=== PATIENT | male | born 1970 | race Caucasian/White ===

== ENCOUNTER 2024-05-07 12:37 | Outpatient (REF) | payer MEDICAID, SELFPAY ==
--- OUTSIDE RECORDS SUMMARY | 2024-05-07 13:34 | XMS_ITS | Encounter Summary ---
Author Organization [employer] Address [address] [facility] [address] [place] [address] Care Team Providers Care Registered Dietician Name Role Phone Rm Saez MD Primary Care Prov ider Encounter Details Date Type Department Care Team (Latest Contact Info) Description 04/15/2024 Travel Social History Tobacco Use Types Packs/Day Years Used Date Smoking Tobacco: Former Cigarettes 0.3 30.1 S tarted: 1994 Passive Smoke Exposure: Never Smokeless Tobacco: Never Alcohol Use Standard Drinks/Week Comments Yes 0 (1 standard drink = 0.6 oz pur e alcohol) socially beer Depression Answer Date Recorded Patient Health Questionnaire-9 Score 0 04/15/2024 Patient Health Questionnaire-9 Score 0 04/15/2024 Last PHQ-9: Questionnaire Data Not on file 0 04/15/2024 Housing Stability Answer Date Recorded What is your housing situation today? I have nanifarnaz pineda 04/15/[address] you li ve. Do you have problems with any of the following? None of the above 04/15/2024 Food Insecurity Answer Date Recorded Within the past 12 months, y ou worried that your food would run out before you got money to buy more: Never True 04/15/2024 Within the past 12 months,th e food you bought just didn't last and you didn't have enough money to get more: Never True Utilities Answer Date Recorded In the past 12 months, has t he electric, gas, oil or water company threatened to shut off services in your home? No 04/15/2024 Depression Answer Date Recorded Patient Health Questionnaire-2 Score 0 04/15/2024 Internet Access Answer Date Recorded Internet Access Q1 Yes 04/15/2024 Internet Access Q2 Not on file 04/15/2024 Sex and Gender Information Value Date Recorded Sex Assigned at Male 01/17/2022 10:29 AM EDT Legal Sex Male 10:29 AM EDT Gender Identity Male 04/11/2024 9:30 AM EST Sexual Orientation Don't know 04/11/2024 9: 30 AM EST documented as of this encounter Plan of Treatment Upcoming Encounters Date Type Department Care Team (Late st Contact Info) Description 06/03/2024 9:30 AM EDT Office Visit [facility] MED & PEDS [address] [place] [address] Rm Saez MD [address] [place] [address] documented as of this encounter Visit Diagnoses Not on filedocumented in this encounter Additional Health Concerns Assessment Noted Time PHQ-9 Depression Total Score: 0 04/15/19 25 8:34 AM EST documented as of this encounter Care Teams Registered Dietician Relationship Specialty Start Date End Date Rm Saez MD [address] [place] [address] PCP - General Internal Medicine 04/15/24 documented as of this encounter
--- OUTSIDE RECORDS SUMMARY | 2024-05-07 13:34 | XMS_ITS | Clinical Summary ---
Author Organization [employer] Address [address] [place] [address] [address] [place] [address] Care Team Providers Care Depalletizer Operator Name Role Phone Rm Saez MD Primary Care Prov ider Allergies No known active allergies Medications No known medications Active Problems Problem Noted Date Diagnosed Date Encounter to establish care 04/15/2024 Assessment & Plan (04/15/2024 9:12 AM EST): Last pcp visit >5 years Er: - Hospitalization: 2017 LBBB, syncope s/p ICD, alcohol withdrawal 2009 Pmhx: LBBB, HTN Pshx: - All: - Meds: metoprolol 50mg bid, lisinopril 20mg daily Primary hypertension 04/15/2024 Assessment & Plan (04/15/2024 9:33 AM EST): On lisinopril 20mg, keep bp log for next appointment, target <140/90 Lumbar back pain 04/15/2024 Assessment & Plan (04/15/2024 9:36 AM EST): Chronic, patient has hx of l5-s1 disc herniation, no neurologic deficit, Screening for colon cancer 04/15/2024 Assessment & Plan (04/15/2024 9:36 AM EST): Will refer for screening colon cancer Encounters Date Type Department Care Team Description 04/15/2024 9:00 AM EST Telemedicine [facility] MED & PEDS [address] [place] [address] Rm Saez MD Encounter to establish care (Primary Dx); Primary hypertension; Lumbar back pain; Screening for colon cancer 04/15/2024 Travel 03/28/[address] [facility] MEDICINE [address] [place] [address] Sadiq Craft MD New Patient appt. 02/12/[address] [facility] MEDICINE [address] [place] [address] Sadiq Craft MD Appointment Request from Last 3 Months Family History Medical History Relation Name Comments Diabetes Father Osteoarthritis Mother Cancer Neg Hx Relation Name Status Comments Father Mother Social History Tobacco Use Types Packs/Day Years [...] Don't know 04/11/2024 9: 30 AM EST Plan of Treatment Upcoming Encounters Date Type Department Care Team ([facility] st Contact Info) Description 06/03/2024 9:30 AM EDT Office Visit [facility] MED & PEDS [address] [place] [address] Rm Saez MD [address] [place] [address] Health Maintenance Due Date Last Done Comments CT Colonography 1971 Colonoscopy 1971 Colorectal Cancer Screening 1971 FIT DNA/Cologuard 1971 FIT 1971 FOBT 1971 HIV Screening 1971 Lipid Panel 1971 SDOH Screening 1971 Sigmoidoscopy 1971 Alcohol/Substance Use Screening 1983 Family Planning (PISQ) 08/29/1986 Hepatitis C Screening 08/29/1989 Pneumococcal Vaccine: 50+ Years (1 of 1 - PCV) 08/29/2021 Hepatitis B Vaccines (2 of 2 - CpG 2-dose series) 09/23/2023 08/26/2023 Depression Screening 04/15/2025 04/15/2024, 04/15/19 25 Tobacco Screening 04/15/2025 04/15/2024 DTaP/Tdap/Td Vaccines (2 - Td or Tdap) 07/21/2025 07/22/2015 RSV Patients and Patients Aged 60 years or older (1 - 1-dose 75+ series) 08/29/2046 Zoster Vaccines Completed 08/26/2023, 03/14/2023 COVID-19 Vaccine Completed 12/25/2023, , 01/31/2022, Additional history exists Influenza Vaccine Completed 12/25/2023, , 01/24/2022, Additional history exists HIB Vaccines Aged Out No longer eligi ble based on patient's age to complete this topic HPV Vaccines Aged Out No longer eligi ble based on patient's age to complete this topic Hepatitis A Vaccines Aged Out No long er eligible based on patient's age to complete this topic IPV Vaccines Aged Out No longer eligi ble based on patient's age to complete this topic Meningococcal Vaccine Aged Out No tika russel eligible based on patient's age to complete this topic RSV under 20 months Aged Out No longe r eligible based on patient's age to complete this topic Rotavirus Vaccines Aged Out No longer eligible based on patient's age to complete this topic Insurance [facility] C3 Care Teams Depalletizer Operator Relationship Specialty Start Date End Date Rm Saez MD [address] [place] [address] MARISSA Gordillo [address] PCP - General Internal Medicine 04/15/24
--- OUTSIDE RECORDS SUMMARY | 2024-05-07 13:34 | XMS_ITS | Encounter Summary ---
Author Organization [employer] Address [address] [place] [address] Care Team Providers Care Geological Aide Name Role Phone Rm Saez MD Primary Care Prov ider Reason for Referral * Consultation (Routine) - Authorized Specialty Diagnoses / Procedures Referred By Mauricio smith Referred To Contact Gastroenterology Diagnoses Screening for colon cancer Rm Saez MD [address] [place] [address] Phone: tel: fax: [facility] Referral ID Status Reason Start Date Expiration Date Visits Requested Visits Authorized [id number] Authorized Specialty Services Required 04/15/2024 04/15/2025 6 6 Encounter Details Date Type Department Care Team ([facility] st Contact Info) Description 04/15/2024 9:00 AM EST Telemedicine [facility] MED & PEDS [address] [place] [address] Rm Saez MD [address] [place], [place] [phone] Encounter to establish care (Primary Dx); Primary hypertension; Lumbar back pain; Screening for colon cancer Social History Tobacco Use Types Packs/Day Years [...] is your housing situation today? I have nani pineda 04/15/[address] you [...] AM EST documented as of this encounter Progress Notes * Rm Navarrete MD - 04/15/2024 9:00 AM EST Subjective Patient ID: Shree Curiel is a 53 y.o. male who presents for No chief complaint on file.. HPI Patient was scheduled for a televisit to establish medical care Review of Systems Constitutional: Negative for chills, diaphoresis, fatigue and fever. Respiratory: Negative for cough and shortness of breath. Cardiovascular: Negative for chest pain and palpitations. Gastrointestinal: Negative for abdominal distention, abdominal pain, anal bleeding, blood in stool and constipation. Objective Physical Exam Neurological: General: No focal deficit present. Mental Status: He is oriented to person, place, and time. Psychiatric: Mood and Affect: Mood normal. Behavior: Behavior normal. Assessment/Plan Problem List Items Addressed This Visit Encounter to establish care - Primary Last pcp visit >5 years Er: - Hospitalization: 2017 LBBB, syncope s/p ICD, alcohol withdrawal 2009 Pmhx: LBBB, HTN Pshx: - All: - Meds: metoprolol 50mg bid, lisinopril 20mg daily Primary hypertension On lisinopril 20mg, keep bp log for next appointment, target <140/90 Lumbar back pain Chronic, patient has hx of l5-s1 disc herniation, no neurologic deficit, Screening for colon cancer Will refer for screening colon cancer Relevant Orders Referral to Gastroenterology documented in this encounter Miscellaneous Notes * Assessment & Plan Note - Rm Navarrete MD - 04/15/2024 9:36 AM ESTAssociated Problem(s): Screening for colon cancer Will refer for screening colon cancer * Assessment & Plan Note - Rm Navarrete MD - 04/15/2024 9:36 AM ESTAssociated Problem(s): Lumbar back pain Chronic, patient has hx of l5-s1 disc herniation, no neurologic deficit, * Assessment & Plan Note - Rm Navarrete MD - 04/15/2024 9:33 AM ESTAssociated Problem(s): Primary hypertension On lisinopril 20mg, keep bp log for next appointment, target <140/90 * Assessment & Plan Note - Rm Navarrete MD - 04/15/2024 9:12 AM ESTAssociated Problem(s): Encounter to establish care Last pcp visit >5 years Er: - Hospitalization: 2016 LBBB, syncope s/p ICD, alcohol withdrawal 2009 Pmhx: LBBB, HTN Pshx: - All: - Meds: metoprolol 50mg bid, lisinopril 20mg daily documented in this encounter Plan of Treatment Upcoming Encounters Date Type Department Care Team (Late st Contact Info) Description 06/03/2024 9:30 AM EDT Office Visit [facility] MED & PEDS [address] [place] [address] Rm Saez MD [address] [place] [address] Scheduled Referrals Name Type Priority Associated Diagnoses Order Schedule Referral to Gastroenterology Outpatient Referral Routine Screening for colon cancer Expected: 04/15/2024 (Approximate), Expires: 04/15/2025 documented as of this encounter Visit Diagnoses Diagnosis Encounter to establish care- Primary Primary hypertension Unspecified essential hypertension Lumbar back pain Lumbago Screening for colon cancer Special screening for malignant neoplasms, colon documented in this encounter Additional Health Concerns Assessment Noted Time PHQ-9 Depression Total Score: 0 04/15/19 25 8:34 AM EST documented as of this encounter Care Teams Geological Aide Relationship Specialty Start Date End Date Rm Saez MD [address] [place] [address] PCP - General Internal Medicine 04/15/24 documented as of this encounter
--- OUTSIDE RECORDS SUMMARY | 2024-05-07 13:34 | XMS_ITS | Clinical Summary ---
Author Organization [facility] Address [address] [place] [address] Care Team Providers Care Wool Broker Name Role Phone Unavailable Primary Care Provider Unavailabl e Social History Tobacco Use Types Packs/Day Years Used Date Smoking Tobacco: Never Assessed Sex and Gender Information Value Date Recorded Sex Assigned at Not on file Gender Identity Not on file Sexual Orientation Not on file Plan of Treatment Health Maintenance Due Date Last Done Comments Hepatitis B Vaccines (1 of 3 - 3-dose series) 1971 Hepatitis C Screening 1971 COVID-19 Vaccine (#1) 02/29/1972 Depression Screening 1983 Preventative Health Evaluation 08/29/1989 DTap / Tdap / Td (1 - Tdap) 08/29/1990 Colon Cancer Screening (Colonoscopy) 08/29/2016 Shingrix-Zoster Vaccine (1 of 2) 08/29/2021 Influenza Vaccine (#1) 2023 Pneumococcal Vaccine Aged Out No long er eligible based on patient's age to complete this topic RSV Ped < 20 months Aged Out No longe r eligible based on patient's age to complete this topic
--- OUTSIDE RECORDS SUMMARY | 2024-05-07 13:34 | XMS_ITS | Encounter Summary ---
Author Organization [employer] Address [address] [place] [address] Care Team Providers Care Hair Spinner Name Role Phone Rm Saez MD Primary Care Prov ider Reason for Visit * Reason Onset Date Comments Appointment Request 02/12/2024 Encounter Details Date Type Department Care Team ([facility] st Contact Info) Description 02/12/2024 Telephone [facility] MEDICINE [address] [place], [place] [phone] Sadiq Craft MD [address] [place] [address] Appointment Request Social History Tobacco Use Types Packs/Day Years Used Date Smoking Tobacco: Never Assessed Sex and Gender Information Value Date Recorded Sex Assigned at Male 01/17/2022 10:29 AM EDT Legal Sex Male 10:29 AM EDT Gender Identity Male 04/11/2024 9:30 AM EST Sexual Orientation Don't know 04/11/2024 9: 30 AM EST documented as of this encounter Miscellaneous Notes * Telephone Encounter - Mariangel Hassan - 02/12/2024 8:56 AM EST Patient added to [facility] New Patient wait list as 02/12/2024 * Telephone Encounter - Nasrin Stephenson - 02/12/2024 8:37 AM EST TC from caller requesting NEW PATIENT visit . Medical Conditions: defibrillator Insurance name : [facility] [employer] Location : [facility] Demographic information updated documented in this encounter Plan of Treatment Upcoming Encounters Date Type Department Care Team (Late st Contact Info) Description 06/03/2024 9:30 AM EDT Office Visit [facility] MED & PEDS [address] [place] [address] Rm Saez MD [address] [place] [address] documented as of this encounter Visit Diagnoses Not on filedocumented in this encounter Care Teams Hair Spinner Relationship Specialty Start Date End Date Rm Saez MD [address] [place] [address] PCP - General Internal Medicine 04/15/24 documented as of this encounter
[2024-05-07 14:16] LABS: MANUAL DIFF FLAG NO
[2024-05-07 14:26] LABS: Basophils Percent Auto 0.6 % (0-2); Eosinophils Absolute Auto 0.1 X10*3/uL (0.0-0.4); Eosinophils Percent Auto 0.8 % (0-4); Hematocrit 43.7 % (42.0-52.0); Hemoglobin 14.6 g/dl (14.0-18.0); Imm Gran Abs Auto 0.02 X10*3/uL (0.00-0.03); Imm Gran Pct Auto 0.3 % (0.0-0.4); Lymphocytes Absolute Auto 1.8 X10*3/uL (1.2-4.9); Lymphocytes Percent Auto 28.6 % (20-40); Mean Corpuscular HGB Conc 33.4 g/dl (31.0-36.0); Mean Corpuscular Volume 89.9 fL (80.0-98.0); Mean Platelet Volume 9.4 fL (9.4-12.4); Monocytes Absolute Auto 0.7 X10*3/uL (0.1-1.2); Monocytes Percent Auto 10.5 % (2-11); Neutrophils Absolute Auto 3.7 x10*3/uL (2.0-8.3); Neutrophils Percent Auto 59.2 % (45-73); Platelet Count 404 X10*3/uL (160-400); Red Blood Count 4.86 X10*6/uL (4.60-5.80); Red Cell Distribution Width 13.4 % (11.0-16.0); White Blood Count 6.3 X10*3/uL (4.8-10.8)
[2024-05-07 14:28] LABS: INTERNATIONAL NORM RATIO 0.9 (0.9-1.1); Prothrombin Time 10.9 SEC (10.9-12.4)
[2024-05-07 14:57] LABS: Anion Gap 14 (12-20); Blood Urea Nitrogen 8 mg/dL (9-16); Calcium 9.6 mg/dL (8.4-10.2); Carbon Dioxide 25 mmol/L (22-29); Chloride 104 mmol/L (96-108); Estimated Glomerular Filt Rate > 60; Glucose Random 120 mg/dL (60-115); Potassium 3.5 mmol/L (3.3-5.1); Sodium 139 mmol/L (135-145)
== END 2024-05-07 12:38 | disposition home or self-care (01) ==
LOC: HO.CHCLDS 12:37
PROVIDERS: Visit Provider Student in an Organized Health Care Education/Training Program
DX: Z01.818 Encounter for other preprocedural examination (principal); I44.7 Left bundle-branch block, unspecified
CPT/HCPCS: 36415; 80048; 85025; 85610